=== PATIENT | male | born 1975 | race Caucasian/White ===

== ENCOUNTER 2017-04-25 07:17 | Emergency (ER) | payer SELFPAY ==
[~2017-04-25] VITALS: Ht 172.7 cm; Wt 73.6 kg
[~2017-04-25 07:17] MED LIST: INSU100I28 SQ-INSULIN; INSU100V8 SQ; SLIDING SCALE; [UNRECOGNIZED DRUG - REMARK]
[2017-04-25] MEDS ORDERED: SODIUM CHLORIDE 0.9% 1,000ML IVBOLUS ONE (09:00)
[2017-04-25] MEDS ORDERED: SODIUM CHLORIDE FLUSH 10ML SYR IVF ONE (09:00)
[2017-04-25] MEDS ORDERED: METOCLOPRAMIDE 5 MG/ML, 2ML IVPush ONE (09:00)
[2017-04-25 09:12] LABS: BASOPHILS # (AUTO) 0.02 x10^3/uL (0-0.1); BASOPHILS % (AUTO) 0 % (0-1); EOSINOPHILS # (AUTO) 0.03 x10^3/uL (0-0.4); EOSINOPHILS % (AUTO) 0 % (1-7); LYMPHOCYTES # (AUTO) 1.04 x10^3/uL (1-3.4); LYMPHOCYTES % (AUTO) 15 % (22-44); MD NO; MEAN CORPUSCULAR HEMOGLOBIN 34.1 pg (27.5-34.5); MEAN CORPUSCULAR HGB CONC 34.5 g/dL (33.2-36.2); MEAN CORPUSCULAR VOLUME 98.6 fL (81-97); MEAN PLATELET VOLUME 7.7 fL (7.4-10.4); MONOCYTES # (AUTO) 0.34 x10^3/uL (0.2-0.8); MONOCYTES % (AUTO) 5 % (2-9); NEUTROPHILS # (AUTO) 5.64 x10^3/uL (1.8-6.8); NEUTROPHILS % (AUTO) 80 % (42-75); PLATELET COUNT 184 x10^3/uL (130-400); RED BLOOD COUNT 4.58 x10^6/uL (4.38-5.82); RED CELL DISTRIBUTION WIDTH 13.1 % (9.4-14.8)
[2017-04-25 09:25] LABS: ALANINE AMINOTRANSFERASE 68 U/L (12-78); ALBUMIN 4.3 g/dL (3.4-5.0); ANION GAP 10 mmol/L (5-15); CALCIUM 8.7 mg/dL (8.5-10.1); CHLORIDE 101 mmol/L (98-107); CREATININE 0.87 mg/dL (0.7-1.3)
[2017-04-25 09:27] LABS: ALKALINE PHOSPHATASE 117 U/L (45-117); BILIRUBIN,TOTAL 0.5 mg/dL (0.2-1.0); TOTAL PROTEIN 7.8 g/dL (6.4-8.2)
[2017-04-25 09:29] LABS: ACETONE, SERUM Negative (Negative)
[2017-04-25] MEDS ORDERED: FAMOTIDINE 20 MG TABLET ONE (10:45)
[2017-04-25] MEDS ORDERED: MAALOX/HYOSCYAMINE/LIDOCAINE 45 ML BTL ONE (10:45)
[2017-04-25] MEDS ORDERED: ONDANSETRON 2MG/ML, 2ML ONE (10:56)
[2017-04-25] MEDS ORDERED: MORPHINE SULFATE 4 MG/ML, 1ML ONE (10:56)
[2017-04-25] MEDS ORDERED: FAMOTIDINE 20 MG TABLET PO ONE (11:00)
[2017-04-25] MEDS ORDERED: MAALOX/HYOSCYAMINE/LIDOCAINE 45 ML BTL PO ONE (11:00)
[2017-04-25 11:11] LABS: MICROSCOPIC AUTO
[2017-04-25 11:12] LABS: CULTURE INDICATED? NO
[2017-04-25] MEDS ORDERED: morphine SULFATE 10 MG/ML, 1ML IVPush ONE (11:30)
[2017-04-25] MEDS ORDERED: MORPHINE SULFATE 4 MG/ML, 1ML IVPush ONE (11:30)
[2017-04-25] MEDS ORDERED: ONDANSETRON 2MG/ML, 2ML IVPush ONE ×2 (11:30)
[2017-04-25] MEDS ORDERED: SODIUM CHLORIDE 0.9%, 500ML IVBOLUS ONE (12:30)
[2017-04-25 13:21] VITALS: BP 154/88
== END 2017-04-25 13:29 | disposition home or self-care (01) ==
LOC: ED 09:14
DX: T62.91XA Toxic effect of unspecified noxious substance eaten as food, accidental (unintentional), initial encounter (principal); K52.9 Noninfective gastroenteritis and colitis, unspecified; E11.10 Type 2 diabetes mellitus with ketoacidosis without coma; Y92.89 Other specified places as the place of occurrence of the external cause
CPT/HCPCS: 36415; 80053; 81001; 82010; 82962; 85025; 96361; 96374; 96375; 99284; J2270; J2405; J7030; J7040